=== PATIENT | male | born 1960 | race African-American/Black ===

== ENCOUNTER 2024-07-23 22:46 | Emergency (ER) | payer SELFPAY ==
[~2024-07-23] VITALS: Ht 172.7 cm; Wt 94.0 kg
[2024-07-23 22:47] VITALS: O2SAT 95
[2024-07-23] MEDS: SODIUM CHLORIDE 0.9% 1,000 ML IV ONE (23:38)
[2024-07-24 00:02] LABS: BASOPHILS % 0.6 % (0.0-2.0); EOSINOPHILS % 2.4 % (0.0-5.0); HEMATOCRIT. 44.2 % (42.0-52.0); HEMOGLOBIN. 14.6 g/dL (14.0-18.0); LYMPHOCYTES % 30.6 % (20.0-50.0); MEAN CORPUSCULAR HEMOGLOBIN 27.8 pg (28.0-32.0); MEAN CORPUSCULAR HGB CONC 32.9 g/dL (31.0-37.0); MEAN CORPUSCULAR VOLUME 84.3 fL (80.0-94.0); MEAN PLATELET VOLUME 7.5 fl (7.4-10.4); MONOCYTES % 6.1 % (2.0-8.0); NEUTROPHILS % 60.3 % (40.0-76.0); PLATELET 249 x1000/uL (130-400); RED BLOOD CELL COUNT 5.25 mill/uL (4.7-6.1); RED CELL DISTRIBUTION WIDTH 15.8 % (11.6-14.6); WHITE BLOOD COUNT 8.9 x1000/uL (4.5-11.0)
[2024-07-24 00:14] LABS: PROTHROMBIN TIME 11.2 sec (9.6-11.0)
[2024-07-24 00:24] LABS: CHLORIDE 110 mEq/L (98-107); POTASSIUM 4.8 mEq/L (3.5-5.1); SODIUM 145 mEq/L (136-145)
[2024-07-24 00:25] LABS: CALCIUM 9.5 mg/dL (8.7-10.4); CARBON DIOXIDE 26 mEq/L (21-32)
[2024-07-24 00:30] LABS: CREATININE 1.5 mg/dL (0.6-1.3); GLUCOSE 114 mg/dL (70-105); UREA NITROGEN BLOOD 16 mg/dL (9-23)
[2024-07-24 00:31] LABS: ETHANOL BLOOD < 10 mg/dL (<10)
[2024-07-24 00:32] LABS: TROPONIN I HIGH SENSITIVITY 7 ng/L (3.0-53)
[2024-07-24 04:56] VITALS: BP 155/99; PULSE 63; RESP 15; TEMP 36.94740; O2SAT 97
== END 2024-07-24 04:49 | disposition home or self-care (01) ==
LOC: EDBD 22:46 → ER 22:46
DX: N17.9 Acute kidney failure, unspecified (principal); R55 Syncope and collapse; I95.9 Hypotension, unspecified
CPT/HCPCS: 80048; 80320; 83880; 85025; 85610; 84484; 36415; 71045; 93005; 99285; 70450; J7030; G0480